=== PATIENT | male | born 1945 | race Hispanic/Latino ===

== ENCOUNTER 2018-05-25 07:21 | Day surgery (SDC) | payer OTHER ==
[2018-05-22 12:00] VITALS: BP 144/85
[2018-05-22 13:16] LABS: BASOPHILS % (AUTO) 0.5 % (0.0-5.0); HEMATOCRIT 42.6 % (42-54); LYMPHOCYTES % (AUTO) 18.1 % (21.0-51.0); MEAN CORPUSCULAR HEMOGLOBIN 31.9 pg (27.0-33.0); MEAN CORPUSCULAR HGB CONC 33.2 g/dL (32.0-36.0); MEAN CORPUSCULAR VOLUME 95.9 fL (79-99); MONOCYTES % (AUTO) 12.2 % (3.0-13.0); NEUTROPHILS % (AUTO) 68.2 % (40.0-77.0); NUCLEATED RED BLOOD CELLS 0.1 % (0.0-0.19); PLATELET COUNT (AUTO) 133 K/uL (130-400); RED BLOOD CELL COUNT(AUTO) 4.45 MIL/uL (4.50-6.20); RED CELL DISTRIBUTION WIDTH 13.9 % (11.0-15.5); WHITE BLOOD COUNT (AUTO) 6.8 K/uL (4.8-10.8)
[2018-05-22 13:17] LABS: APPEARANCE,URINE Clear (CLEAR); BILIRUBIN,URINE Negative (NEGATIVE); COLOR,URINE Yellow (YELLOW); GLUCOSE, URINE (UA) Negative (NEGATIVE); KETONES,URINE Negative (NEGATIVE); LEUKOCYTE ESTERASE ,URINE Negative (NEGATIVE); NITRATE,URINE Negative (NEGATIVE); OCCULT BLOOD,URINE Negative (NEGATIVE); PROTEIN,URINE Negative (NEGATIVE); UROBILINOGEN,URINE 0.2 mg/dL (0.2-1.0)
[2018-05-22 13:32] LABS: CREATININE 0.9 mg/dL (0.5-1.5)
[2018-05-25] VITALS (16 sets, daily range): BP systolic 132–149; BP diastolic 77–95
[~2018-05-25] VITALS: Ht 170.2 cm; Wt 72.8 kg
[2018-05-25] MEDS ORDERED: BUPIVACAINE/PF 0.25% 30ML VIAL IJ ONE (07:55)
[2018-05-25] MEDS ORDERED: MULT-1289 PO (08:00)
[2018-05-25] MEDS ORDERED: LACTATED RINGERS 1000ML 1,000 ML IV SCH (08:00)
[2018-05-25] MEDS ORDERED: TAMS0.4C32 PO (08:00)
[2018-05-25] MEDS ORDERED: DEXAMETHASONE SOD PHOSPHATE 10MG/ML 1ML VIAL ONE (08:27)
[2018-05-25] MEDS ORDERED: MIDAZOLAM HCL 1 MG/ML 2ML VIAL ONE (08:27)
[2018-05-25] MEDS ORDERED: LIDOCAINE PF 2% 5ML ABBOJECT ONE (08:27)
[2018-05-25] MEDS ORDERED: FENTANYL CITRATE PF 50 MCG/1 ML 2ML VIAL ONE (08:28)
[2018-05-25] MEDS ORDERED: PROPOFOL 10 MG/ML 20ML VIAL IV ONE (08:28)
[2018-05-25] MEDS ORDERED: ONDANSETRON HCL 4 MG/2 ML VIAL ONE (08:28)
[2018-05-25] MEDS ORDERED: ROCURONIUM 10MG/1ML SYR 10 MG/ML ML ONE (08:45)
[2018-05-25] MEDS ORDERED: GLYCOPYRROLATE 1 MG/5 ML SYRINGE ONE (09:29)
[2018-05-25] MEDS ORDERED: NEOSTIGMINE 5MG/5ML SYR IV ONE (09:29)
[2018-05-25] MEDS ORDERED: ONDANSETRON HCL MDV 20ML 2 MG/ML VIAL ONE (10:55)
== END 2018-05-25 11:35 | disposition home or self-care (01) ==
LOC: DAH 07:21
PROVIDERS: ATTEND Surgery
DX: K40.90 Unilateral inguinal hernia, without obstruction or gangrene, not specified as recurrent (principal); N40.1 Benign prostatic hyperplasia with lower urinary tract symptoms; R35.1 Nocturia; Z83.3 Family history of diabetes mellitus; Z87.891 Personal history of nicotine dependence; E78.2 Mixed hyperlipidemia; M19.90 Unspecified osteoarthritis, unspecified site; E66.3 Overweight; Z86.010 Personal history of colon polyps; Z98.890 Other specified postprocedural states; Z79.899 Other long term (current) drug therapy
CPT/HCPCS: 36415; 49505; 80048; 81003; 85025; A4450; A4452; A4930; C1729; C1781; J1100; J2001; J2250; J2405; J2704; J2710; J3010; J3490 ×2; J7120

== ENCOUNTER 2019-02-25 09:36 | Emergency (ER) | payer OTHER, MEDICARE ==
[~2019-02-25 09:36] MED LIST: MULT-1289 PO; TAMS0.4C32 PO
[2019-02-25] MEDS ORDERED: ACETAMINOPHEN EXTRA STRENGTH 500 MG TABLET ONE (09:52)
[2019-02-25 10:55] LABS: BASOPHILS % (AUTO) 0.5 % (0.0-5.0); EOSINOPHILS % (AUTO) 0.6 % (0.0-8.0); HEMATOCRIT 42.3 % (42-54); LYMPHOCYTES % (AUTO) 12.4 % (21.0-51.0); MEAN CORPUSCULAR HEMOGLOBIN 33.2 pg (27.0-33.0); MEAN CORPUSCULAR VOLUME 97.6 fL (79-99); MONOCYTES % (AUTO) 13.3 % (3.0-13.0); NEUTROPHILS % (AUTO) 73.2 % (40.0-77.0); PLATELET COUNT (AUTO) 142 K/uL (130-400); RED BLOOD CELL COUNT(AUTO) 4.34 MIL/uL (4.50-6.20); RED CELL DISTRIBUTION WIDTH 14.3 % (11.0-15.5); WHITE BLOOD COUNT (AUTO) 6.2 K/uL (4.8-10.8)
[2019-02-25 11:07] LABS: INR 0.92 (0.85-1.15); PARTIAL THROMBOPLASTIN TIME 26.8 SEC (26.3-35.5); PROTHROMBIN TIME 9.7 SEC (9.6-11.6)
[2019-02-25 11:12] LABS: POTASSIUM 3.9 mmol/L (3.5-5.1)
[2019-02-25 11:20] LABS: ALBUMIN 3.6 g/dL (3.5-5.0); BILIRUBIN,TOTAL 0.5 mg/dL (0.2-1.0); CREATININE 0.8 mg/dL (0.5-1.5); TOTAL PROTEIN, SERUM 7.4 g/dL (6.0-8.3)
== END 2019-02-25 12:12 | disposition home or self-care (01) ==
LOC: EDH 09:36
DX: R07.89 Other chest pain (principal)
CPT/HCPCS: 36415; 71046; 80053; 82550; 84484; 85025; 85610; 85730; 93005

== ENCOUNTER 2023-11-29 09:24 | Emergency (ER) | payer OTHER, MEDICARE ==
[2023-11-29] MEDS: KETOROLAC 15MG/ML VIAL (15MG/ML) IM ONE (11:01)
[2023-11-29] MEDS ORDERED: MELO-108 PO (12:08)
[2023-11-29 12:35] VITALS: BP 151/77; PULSE 85; RESP 14; O2SAT 97
== END 2023-11-29 12:37 | disposition home or self-care (01) ==
LOC: EDH 09:24
DX: M54.50 Low back pain, unspecified (principal); E11.9 Type 2 diabetes mellitus without complications; Z79.899 Other long term (current) drug therapy; W11.XXXA Fall on and from ladder, initial encounter; Y93.89 Activity, other specified; Y92.89 Other specified places as the place of occurrence of the external cause; Y99.8 Other external cause status
CPT/HCPCS: 99285; 74176; 96372; J1885

== ENCOUNTER 2024-04-27 17:58 | Emergency (ER) | payer OTHER, MEDICARE ==
[~2024-04-27] VITALS: Ht 172.7 cm; Wt 72.6 kg
[~2024-04-27 17:58] MED LIST changes: +MELO-108 PO
--- NOTE | 2024-04-27 18:08 | ERN ---
ED Note History of Present Illness Stated Complaint: DIZZINESS Chief Complaint: Dizzy/Light Headed Time Seen by MD: 18:00 Dictation: PATIENT IS A 78-YEAR-OLD MALE COMING IN TODAY WITH DIZZINESS AND LEFT ANTERIOR CHEST PAIN TENDERNESS ONSET YESTERDAY. NO JAW PAIN NO BACK PAIN NO ARM PAIN. NO NAUSEA NO VOMITING. PATIENT IS NEUROLOGICALLY INTACT WITH GAIT STEADY AND NIH IS 0. Allergies: Coded Allergies: No Known Allergies (Verified Allergy, Unknown, 05/22/18) Home Meds Active Scripts Meloxicam (Meloxicam) 15 Mg Tablet, 7.5 MG PO DAILY PRN for PAIN for 10 Days, #10 TAB Prov:SANJUANA TORRES 11/29/23 Reported Medications Tamsulosin HCl (Tamsulosin HCl) 0.4 Mg Cap.er.24h, 0.4 MG PO AM, CAPSULE. 05/25/18 Multivit-Min/FA/Lycopen/Lutein (Centrum Silver Men Tablet) 1 Each Tablet, 1 EACH PO AM, TAB 05/25/18 Past Medical History Past Medical History: Prostatitis Surgical History: None PSYCH History: no pertinent psych hx RN Note Reviewed/Agreed w/PFSH: Yes Review of System Dictation CONSTITUTIONAL: NEGATIVE EXCEPT FOR HPI HEAD/FACE: NEGATIVE EXCEPT FOR HPI EENT: NEGATIVE EXCEPT FOR HPI LEFT ANTERIOR CHEST PAIN RESPIRATORY: NEGATIVE EXCEPT FOR HPI GASTROINTESTINAL/ABDOMINAL: NEGATIVE EXCEPT FOR HPI GENITOURINARY: NEGATIVE EXCEPT FOR HPI MUSCULOSKELETAL: NEGATIVE EXCEPT FOR HPI INTEGUMENTARY: NEGATIVE EXCEPT FOR HPI NEUROLOGICAL/PSYCH: NEGATIVE EXCEPT FOR HPI DIZZINESS HEMATOLOGIC/LYMPHATIC: NEGATIVE EXCEPT FOR HPI ALL SYSTEMS NEGATIVE, EXCEPT NOTED ABOVE. 13 POINT REVIEW OF SYSTEMS ASSESSED AND ALL NEGATIVE EXCEPT FOR ABOVE. Initial Vital Sign VS Vital Signs Date Time Temp Pulse Resp B/P (MAP) Pulse Ox O2 Delivery O2 Flow Rate FiO2 04/27/24 17:58 98.8 74 20 140/78 98 Room Air 0 Physical Exam Dictation VITAL SIGNS REVIEWED GENERAL APPEARANCE: ALERT, ORIENTED X 3, NO ACUTE DISTRESS, WELL DEVELOPED, NOURISHED. HEAD AND FACE: NON-TRAUMATIC. EYES: PERRL, PINK CONJUNCTIVAS, EYELID NO TRAUMA, ANTERIOR CHAMBER WITH ARCUS SENILIS. EARS: PINNAS INTACT AND NO SIGNS OF TRAUMA OR ERYTHEMA EAR CANALS CLEAR AND NO DISCHARGE TM NO ERYTHEMA NOSE: NO DISCHARGE, NO BLEEDING. OROPHARYNX: MOUTH NORMAL, TONGUE PINK, PHARYNX CLEAR,NO ERYTHEMA, TONSILS NO EXUDATES, NO ABSCESSES NOTED, MUCOUS MEMBRANE MOIST NECK: SUPPLE, NON-TENDER, NO THYROMEGALY, NO MASSES, NO JVD, NO BRUITS BREAST:DEFERRED CHEST:NO TENDERNESS, NO CREPITUS, NO PARADOXICAL MOVEMENT, NO RETRACTIONS LUNGS:CLEAR, WELL-VENTILATED, SYMMETRIC, NO RALES, NO WHEEZING, NO RHONCHI, NO STRIDOR, GOOD BREATH SOUNDS BILATERALLY HEART: REGULAR RATE, REGULAR RHYTHM, NO MURMUR, NO GALLOPS VASCULAR: NO PERIPHERAL EDEMA, ABDOMEN: SOFT, POSITIVE BOWEL SOUNDS, NONDISTENDED, NO GUARDING, NONTENDER, NO REBOUND, NO MASSES NO HEPATOMEGALY, NO SPLENOMEGALY, NO FLORIAN'S SIGN, NO HERNIAS. RECTAL: DEFERRED GENITAL: DEFERRED NEUROLOGICAL: NORMAL SPEECH, MOTOR FUNCTION INTACT, SENSORY FUNCTION INTACT NIH IS 0 MUSCULOSKELETAL: NECK NONTENDER, FULL RANGE OF MOTION, BACK NONTENDER, FULL RANGE OF MOTION, EXTREMITIES: NONTENDER, FULL RANGE OF MOTION SKIN: COLOR PINK, DRY, NO TURGOR, NO RASH, NO LACERATIONS, NO ABRASIONS, NO CONTUSIONS. LYMPHATIC: DEFERRED Results (Laboratory/Radiology) Laboratory/Radiology Laboratory Tests Test 04/27/24 18:11 04/27/24 18:17 04/27/24 20:21 Urine Color YELLOW (YELLOW) Urine Appearance CLEAR (CLEAR) Urine pH 6.0 (5.0-8.0) Urine Specific [place] 1.023 (1.001-1.031) Urine Protein NEGATIVE mg/dL (NEGATIVE) Urine Glucose (UA) NEGATIVE mg/dL (NEGATIVE) Urine Ketones NEGATIVE mg/dL (NEGATIVE) Urine Occult Blood NEGATIVE (NEGATIVE) Urine Nitrate NEGATIVE (NEGATIVE) Urine Bilirubin NEGATIVE mg/dL (NEGATIVE) Urine Urobilinogen 0.2 mg/dL (0.2-1.0) Urine Leukocyte Esterase NEGATIVE Anabelle/uL White Blood Count 6.5 K/uL (4.8-10.8) Red Blood Count 4.10 MIL/uL (4.50-6.20) L Hemoglobin 13.0 g/dL (14.0-18.0) L Hematocrit 38.7 % (42-54) L Mean Corpuscular Volume 94.4 fL (79-99) Mean Corpuscular Hemoglobin 31.7 pg (27.0-33.0) Mean Corpuscular Hemoglobin Concent 33.6 g/dL (32.0-36.0) Red Cell Distribution Width 13.7 % (11.0-15.5) Platelet Count 171 K/uL (130-400) Mean Platelet Volume 10.2 fL (7.5-10.5) Immature Granulocyte % (Auto) 0.3 % (0-1) Neutrophils (%) (Auto) 52.5 % (40.0-77.0) Lymphocytes (%) (Auto) 32.8 % (21.0-51.0) Monocytes (%) (Auto) 12.4 % (3.0-13.0) Eosinophils (%) (Auto) 1.5 % (0.0-8.0) Basophils (%) (Auto) 0.5 % (0.0-5.0) Neutrophils # (Auto) 3.4 K/uL (1.8-7.7) Lymphocytes # (Auto) 2.1 K/uL (1.0-4.8) Monocytes # (Auto) 0.8 K/uL (0.1-1.0) Eosinophils # (Auto) 0.10 K/uL (0.00-0.70) Basophils # (Auto) 0.03 K/uL (0.00-0.20) Absolute Immature Granulocyte (auto 0.02 K/uL (0-1) Nucleated Red Blood Cells 0.0 % (0.0-0.19) Sodium Level 140 mmol/L (136-145) Potassium Level 3.7 mmol/L (3.5-5.1) Chloride Level 103 mmol/L (101-111) Carbon Dioxide Level 31 mmol/L (21-32) Blood Urea Nitrogen 20 mg/dL (7-18) H Creatinine 0.8 mg/dL (0.5-1.3) Glomerular Filtration Rate Calc 90 mL/min (>90) Random Glucose 91 mg/dL (70-105) Total Calcium 8.7 mg/dL (8.5-10.1) Total Creatine Kinase 179 U/L (21-232) # B-Type Natriuretic Peptide 37 pg/mL (0-100) Troponin I High Sensitivity 7 ng/L (4-75) CHEST 1VW REASON: CHEST PAIN COMPARISON: 02/25/2019 FINDINGS: Single view of the chest was obtained. Lungs are clear. Heart size is normal. There is no pulmonary vascular congestion. Mediastinum and bony thorax appear unremarkable. IMPRESSION: 1. Normal single view chest x-ray. Labs Reviewed?: Yes EKG Comment: EKG NORMAL SINUS RHYTHM/HEART RATE 71/AXIS NORMAL/NO ED Course ED Course Orders Procedure Category Date Status Time Vital Signs Per CPOE 04/27/24 Transmitted Routine 18:01 B-Type Natriuretic LAB 04/27/24 Complete Peptide 18:01 Chest 1vw RAD 04/27/24 Resulted 18:01 12 Lead Ekg Tracing- EKG 04/27/24 Logged Technical 18:01 Oxygen By Nc/Pulse Ox CPOE 04/27/24 Transmitted 18:01 Maintain Iv CPOE 04/27/24 Transmitted 18:01 Iv Insertion CPOE 04/27/24 Transmitted 18:01 Cardiac Monitoring CPOE 04/27/24 Transmitted 18:01 Pulse Oximetry With CPOE 04/27/24 Transmitted Vs And Prn 18:01 Cbc With Differential LAB 04/27/24 Complete 18:01 Activity: Br W/Brp CPOE 04/27/24 Transmitted With Assist 18:01 Creatine Kinase, Total LAB 04/27/24 Complete 18:01 Urinalysis Profile LAB 04/27/24 Complete 18:01 Troponin Poc Order LAB 04/27/24 Complete Only 18:01 Bedside Troponin-I LAB.ER 04/27/24 In Process (Poc) 18:01 Basic Metabolic Panel LAB 04/27/24 Complete 18:01 Aspirin 325mg Tab PHA 04/27/24 Complete (Aspirin 325mg Tab) 18:30 Troponin I High LAB 04/27/24 Complete Sensitivity 20:14 Current Medications Medications (Trade) Dose Ordered Sig/Paramjit Route PRN Reason Start Time Stop Time Status Last Admin Dose Admin Aspirin (Aspirin 325mg Tab) 325 mg ONCE ONCE PO 04/27/24 18:30 04/27/24 18:31 DC Vital Signs Date Time Temp Pulse Resp B/P (MAP) Pulse Ox O2 Delivery O2 Flow Rate FiO2 04/27/24 17:58 98.8 74 20 140/78 98 Room Air 0 06/04/2044, patient is hemodynamically stable no chest pain at this time discharged home with atypical chest pain and told to see his primary care doctor in 1-2 days. HEART Score Response (Comments) Value History: Low suspicion (0) 0 Age: > 65yrs (+2) 2 Risk Factors: 1-2 risk factors (+1) 1 Initial Troponin: Normal limit (0) 0 Total 3 Medical Decision Making MDM MDM: Differential diagnosis: ACS/AMI/pneumonia/bronchitis/electrolyte imbalance/dehydration Rationale: Tests considered and ordered secondary to shared decision making include: EKG/labs lab radiology Previous outside records reviewed: Old ER visits. Reviewed Risk of complication and/or morbidity or mortality of patient management: None Medications-Per medication reconciliation see nurse's notes Need for hospitalization: Patient does not meet criteria for hospitalization. No Need for emergency major/minor surgery: No There are no social concerns with this patient. Prescription drug management none Prescriptions will include symptomatic care Patient's prior external medical records from other ER visits were reviewed by me as indicated. Prior testing and results from previous visits were reviewed. Prior tests were taken into account with medical decision making and resource utilization, independent historian/historians were used to obtain complete medical history. I independently interpreted the test that were performed, results were reviewed by me and considered findings on radiology if ordered. Medical management and examination interpretation discussions were had by me with other qualified healthcare professionals as indicated for the patient's care. DX & DISP Disposition: Discharge Departure Impression: Primary Impression: Atypical chest pain Condition: Stable Additional Instructions: Follow-up with primary care provider in 1 to 2 days. Take medications as directed here in the emergency room. Okay to continue home medications unless otherwise discussed during your visit in the emergency room today. Return to your nearest emergency room if symptoms worsen or if there is no improvement. Call 911 if you need immediate assistance. Take Tylenol or Motrin [id number] as needed and if no contraindications are present. Increase oral hydration. A wound culture or urine culture was ordered here in the emergency room department please follow-up with primary care provider and advise them to get repeat ports from our facility. If you had any Kyle wrap/splints that were applied here, please do not remove them until you see your primary care or specialty. Continue all medications and treatments at home. See your primary care doctor for follow up. Referrals: DAVON DRISCOLL MD (PCP) Time of Disposition: 21:49 I have reviewed the case, and I agree with, Diagnosis and Plan FELIX HANNAH NP Apr 27, 2024 18:08
[2024-04-27 18:30] LABS: APPEARANCE,URINE CLEAR (CLEAR); BILIRUBIN,URINE NEGATIVE (NEGATIVE); COLOR,URINE YELLOW (YELLOW); GLUCOSE, URINE (UA) NEGATIVE (NEGATIVE); KETONES,URINE NEGATIVE (NEGATIVE); LEUKOCYTE ESTERASE ,URINE NEGATIVE Leu/uL (NEGATIVE); NITRATE,URINE NEGATIVE (NEGATIVE); OCCULT BLOOD,URINE NEGATIVE (NEGATIVE); PROTEIN,URINE NEGATIVE (NEGATIVE); UROBILINOGEN,URINE 0.2 mg/dL (0.2-1.0)
[2024-04-27] MEDS: ASPIRIN 325MG TAB PO ONE (18:30)
[2024-04-27 18:34] LABS: BASOPHILS # (AUTO) 0.03 K/uL (0.00-0.20); BASOPHILS % (AUTO) 0.5 % (0.0-5.0); EOSINOPHILS % (AUTO) 1.5 % (0.0-8.0); HEMATOCRIT 38.7 % (42-54); IMMATURE GRANULOCYTE ABSOLUTE 0.02 K/uL (0-1); LYMPHOCYTES # (AUTO) 2.1 K/uL (1.0-4.8); LYMPHOCYTES % (AUTO) 32.8 % (21.0-51.0); MEAN CORPUSCULAR HEMOGLOBIN 31.7 pg (27.0-33.0); MEAN CORPUSCULAR HGB CONC 33.6 g/dL (32.0-36.0); MEAN CORPUSCULAR VOLUME 94.4 fL (79-99); MONOCYTES # (AUTO) 0.8 K/uL (0.1-1.0); MONOCYTES % (AUTO) 12.4 % (3.0-13.0); NEUTROPHILS # (AUTO) 3.4 K/uL (1.8-7.7); NEUTROPHILS % (AUTO) 52.5 % (40.0-77.0); PLATELET COUNT (AUTO) 171 K/uL (130-400); RED CELL DISTRIBUTION WIDTH 13.7 % (11.0-15.5); WHITE BLOOD COUNT (AUTO) 6.5 K/uL (4.8-10.8)
[2024-04-27 18:45] LABS: CREATININE 0.8 mg/dL (0.5-1.3); POTASSIUM 3.7 mmol/L (3.5-5.1)
[2024-04-27 18:49] LABS: ADD UA MICROSCOPIC NO
--- NOTE | 2024-04-27 18:52 | HMCIMG ---
CHEST 1VW REASON: CHEST PAIN COMPARISON: 02/25/2019 FINDINGS: Single view of the chest was obtained. Lungs are clear. Heart size is normal. There is no pulmonary vascular congestion. Mediastinum and bony thorax appear unremarkable. IMPRESSION: 1. Normal single view chest x-ray.
[2024-04-27 18:59] LABS: B-TYPE NATRIURETIC PEPTIDE 37 pg/mL (0-100)
[2024-04-27 22:02] VITALS: BP 137/78; PULSE 70; RESP 16; TEMP 98.3; O2SAT 98
--- NOTE | 2024-04-27 22:09 | NUR ---
MEDICATION REVIEWED WITH PT, VERIFIED NAME, AND ALLERGIES
--- NOTE | 2024-04-28 06:34 | EKG ---
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
== END 2024-04-27 22:11 | disposition home or self-care (01) ==
LOC: EDH 17:58
DX: R07.89 Other chest pain (principal); Z79.899 Other long term (current) drug therapy
CPT/HCPCS: 36415; 71045; 80048; 81003; 82550; 83880; 84484; 85025; 93005; 99285

== ENCOUNTER 2025-04-20 08:12 | Observation (INO) | payer MEDICARE, OTHER ==
[~2025-04-20] VITALS: Ht 167.6 cm; Wt 65.7 kg
[2025-04-20] MEDS: 0.9%NACL 1000ML 1,000 ML IV ONE (08:27)
--- NOTE | 2025-04-20 08:37 | EKG ---
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
[2025-04-20 08:49] LABS: IMMATURE GRANULOCYTE ABSOLUTE 0.01 K/uL (0-1); NUCLEATED RED BLOOD CELLS 0.0 % (0.0-0.19); PLATELET COUNT (AUTO) 165 K/uL (130-400); RED BLOOD CELL COUNT(AUTO) 4.30 MIL/uL (4.50-6.20); RED CELL DISTRIBUTION WIDTH 13.8 % (11.0-15.5); WHITE BLOOD COUNT (AUTO) 6.6 K/uL (4.8-10.8)
[2025-04-20 09:07] LABS: ASPARTATE AMINOTRANSFERASE 36.0 U/L (10-37); CREATINE KINASE, TOTAL 96.0 U/L (21-232); CREATININE 0.8 mg/dL (0.5-1.3); GLOMERULAR FILTR. RATE CALC 89.0 mL/min (>90); GLUCOSE,RANDOM 86.0 mg/dL (70-105); SODIUM SERUM 136.0 mmol/L (136-145); TOTAL PROTEIN, SERUM 7.4 g/dL (6.0-8.3); UREA NITROGEN, BLOOD 19.0 mg/dL (7-18)
--- NOTE | 2025-04-20 09:15 | HMCIMG ---
EXAM: CR Chest, 1 View. CLINICAL HISTORY: weakness COMPARISON: None provided. FINDINGS: LUNGS: There is no mass, infiltrate, or acute pulmonary abnormality. PLEURAL SPACES: No evidence of pleural effusion or pneumothorax.Mild right apical pleural thickening noted MEDIASTINUM: Cardiac size and mediastinal contours within normal limits. BONES: No acute osseous abnormality. IMPRESSION: No acute cardiopulmonary pathology is evident. /[place]
--- NOTE | 2025-04-20 09:24 | ERN ---
General Chief Complaint: Other Problems Stated Complaint: WELLNESS CHECK Time Seen by MD: 08:15 Source: patient History of Present Illness Initial Comments Patient is a an 79-year-old male coming in complaining of generalized body weakness. Patient also states he just does not feel like himself. Allergies: Coded Allergies: No Known Allergies (Verified Allergy, Unknown, 05/22/18) Home Meds Active Scripts Meloxicam (Meloxicam) 15 Mg Tablet, 7.5 MG PO DAILY PRN for PAIN for 10 Days, #10 TAB Prov:BRIANSANJUANA Cramer DO 11/29/23 Reported Medications Tamsulosin HCl (Tamsulosin HCl) 0.4 Mg Cap.er.24h, 0.4 MG PO AM, CAPSULE. 05/25/18 Multivit-Min/FA/Lycopen/Lutein (Centrum Silver Men Tablet) 1 Each Tablet, 1 EACH PO AM, TAB 05/25/18 Past Medical History Past Medical History: Prostatitis, Other Past Surgical History: None ROS Dictation CONSTITUTIONAL: No chills, no fever, no weakness, no diaphoresis, malaise. HEAD/FACE: No signs of trauma. EENT: No eye pain, no blurred vision, no tearing, no double vision, no ear pain, no ear discharge, no nose pain, no nasal congestion, no throat pain, no throat swelling, no mouth pain. RESPIRATORY: No cough, no orthopnea, no SOB, no stridor, no wheezing. CARDIOVASCULAR: No chest pain, no edema, no palpitations, no syncope. GASTROINTESTINAL/ABDOMINAL: No abdominal pain, no constipation, no diarrhea, no nausea, no vomiting. GENITOURINARY: No abnormal discharge, no dysuria, no frequent urination, no hematuria. No complaints of pain in the genitals. MUSCULOSKELETAL: No back pain, no gout, no joint pain, no joint swelling, no muscle pain, no muscle stiffness, no neck pain. INTEGUMENTARY: No change in color, no change in hair/nails, no dryness, no lesion, no lumps, no rash. NEUROLOGICAL/PSYCH: No anxiety, not depressed, no emotional problem, no headache, no numbness, no pre-existing deficit, no history of seizures, no tremors, no weakness. HEMATOLOGIC/LYMPHATIC: Not anemic, no history of blood clots, no apparent bleeding, no bruising, glands not swollen. All Systems Negative, Except as Noted. Physical Exam Physical Exam Dictation VITAL SIGNS: Reviewed. GENERAL APPEARANCE: Alert, oriented x3, no acute distress, obese. HEAD AND FACE: Non-traumatic. EYES: PERRL, pink conjunctivas, eyelid no trauma, anterior chamber clear. EARS: Pinnas intact and no signs of trauma or erythema. Ear canals clear and no discharge. TMs no erythema. NOSE: No discharge, no bleeding. OROPHARYNX: Mouth normal, teeth no caries, tongue pink. Pharynx clear, no erythema. Tonsils no exudates, no abscesses noted. Mucous membrane moist. NECK: Supple, non-tender, no thyromegaly, no masses, no JVD, no bruits. BREAST: Deferred. CHEST: No tenderness, no crepitus, no paradoxical movement, no retractions. LUNGS: Clear, well-ventilated, symmetric, no rales, no wheezing, no rhonchi, no stridor, good breath sounds bilaterally. HEART: Regular rate, regular rhythm, no murmur, no gallops. VASCULAR: No peripheral edema. ABDOMEN: Soft, positive bowel sounds, nondistended, no guarding, nontender, no rebound, no masses no hepatomegaly, no splenomegaly, no Watts's sign, no hernias. RECTAL: Deferred. GENITAL: Deferred. NEUROLOGICAL: Normal speech, gross motor function intact, gross sensory function intact. MUSCULOSKELETAL: Neck nontender, full range of motion, back nontender, full range of motion. EXTREMITIES: Nontender, full range of motion. SKIN: Color pink, dry, no turgor, no rash, no lacerations, no abrasions, no co ntusions. LYMPHATICS: Deferred. Results Laboratory and Microbiology Lab and Micro Result Laboratory Tests Test 04/20/25 08:42 04/20/25 09:30 White Blood Count 6.6 K/uL (4.8-10.8) Red Blood Count 4.30 MIL/uL (4.50-6.20) L Hemoglobin 13.6 g/dL (14.0-18.0) L Hematocrit 40.3 % (42-54) L Mean Corpuscular Volume 93.7 fL (79-99) Mean Corpuscular Hemoglobin 31.6 pg (27.0-33.0) Mean Corpuscular Hemoglobin Concent 33.7 g/dL (32.0-36.0) Red Cell Distribution Width 13.8 % (11.0-15.5) Platelet Count 165 K/uL (130-400) Mean Platelet Volume 10.0 fL (7.5-10.5) Immature Granulocyte % (Auto) 0.2 % (0-1) Neutrophils (%) (Auto) 70.0 % (40.0-77.0) Lymphocytes (%) (Auto) 20.8 % (21.0-51.0) L Monocytes (%) (Auto) 8.2 % (3.0-13.0) Eosinophils (%) (Auto) 0.5 % (0.0-8.0) Basophils (%) (Auto) 0.3 % (0.0-5.0) Neutrophils # (Auto) 4.6 K/uL (1.8-7.7) Lymphocytes # (Auto) 1.4 K/uL (1.0-4.8) Monocytes # (Auto) 0.5 K/uL (0.1-1.0) Eosinophils # (Auto) 0.03 K/uL (0.00-0.70) Basophils # (Auto) 0.02 K/uL (0.00-0.20) Absolute Immature Granulocyte (auto 0.01 K/uL (0-1) Nucleated Red Blood Cells 0.0 % (0.0-0.19) Sodium Level 136 mmol/L (136-145) Potassium Level 4.0 mmol/L (3.5-5.1) Chloride Level 103 mmol/L (101-111) Carbon Dioxide Level 28 mmol/L (21-32) Blood Urea Nitrogen 19 mg/dL (7-18) H Creatinine 0.8 mg/dL (0.5-1.3) Glomerular Filtration Rate Calc 89 mL/min (>90) Random Glucose 86 mg/dL (70-105) Total Calcium 8.3 mg/dL (8.5-10.1) L Total Bilirubin 0.6 mg/dL (0.2-1.0) Aspartate Amino Transf (AST/SGOT) 36 U/L (10-37) Alanine Aminotransferase (ALT/SGPT) 39 U/L (12-78) Alkaline Phosphatase 69 U/L (50-136) Total Creatine Kinase 96 U/L (21-232) # Total Protein 7.4 g/dL (6.0-8.3) Albumin 3.4 g/dL (3.5-5.0) L Lipase 38 U/L (16-77) Urine Color LIGHT-YELLOW (YELLOW) Urine Appearance CLEAR (CLEAR) Urine pH 5.5 (5.0-8.0) Urine Specific [place] 1.012 (1.001-1.031) Urine Protein NEGATIVE mg/dL (NEGATIVE) Urine Glucose (UA) NEGATIVE mg/dL (NEGATIVE) Urine Ketones 5 mg/dL (NEGATIVE) H Urine Occult Blood NEGATIVE (NEGATIVE) Urine Nitrate NEGATIVE (NEGATIVE) Urine Bilirubin NEGATIVE mg/dL (NEGATIVE) Urine Urobilinogen 0.2 mg/dL (0.2-1.0) Urine Leukocyte Esterase NEGATIVE Anabelle/uL Labs Reviewed?: Yes EKG/XRAY/US/CT/MRI EKG Comment 04/20/2025 time 8:26 a.m. Ventricular rate 71 Sinus rhythm [place] [address] wave elevation or depression [place] [address] IMAGING REPORT Signed PATIENT: NARAYAN PEREIRA MR#: [id number] : 1945 SEX: M AGE: 79 LOCATION: [facility] ORDER 7 STATUS: REG ER REPORT#: [id number] SERVICE 6 REASON: weakness ORDERING PHYSICIAN: ODILIA GRAYSON MD PROCEDURE: CXR1VW - CHEST 1VW EXAM: CR Chest, 1 View. CLINICAL HISTORY: weakness COMPARISON: None provided. FINDINGS: LUNGS: There is no mass, infiltrate, or acute pulmonary abnormality. PLEURAL SPACES: No evidence of pleural effusion or pneumothorax.Mild right apical pleural thickening noted MEDIASTINUM: Cardiac size and mediastinal contours within normal limits. BONES: No acute osseous abnormality. IMPRESSION: No acute cardiopulmonary pathology is evident. /[place] DICTATED BY: MAYA HUTTON MD DATE: 04/20/25 1014 ELECTRONICALLY SIGNED BY: MAYA HUTTON MD DATE: 04/20/25 1014 MDM MDM: Differential diagnosis: Failure to Thrive, generalized body weakness, Rationale: Tests considered and ordered secondary to shared decision making include: Previous outside records reviewed: Old ER visits. Risk of complication and/or morbidity or mortality of patient management: None Medications-Per medication reconciliation Need for hospitalization: Patient does meet criteria for hospitalization. Need for emergency major/minor surgery: No There are no social concerns with this patient. Prescription drug management Prescriptions will include symptomatic care Patient's prior external medical records from other ER visits were reviewed by me as indicated. Prior testing and results from previous visits were reviewed. Prior tests were taken into account with medical decision making and resource utilization, independent historian/historians were used to obtain complete medical history. I independently interpreted the test that were performed, results were reviewed by me and considered findings on radiology if ordered. Medical management and examination interpretation discussions were had by me with other qualified healthcare professionals as indicated for the patient's care. Patient will be care of the [facility] ED Course Orders Procedure Category Date Status Time Cbc With Differential LAB 04/20/25 Complete 08:17 Comprehensive LAB 04/20/25 Complete Metabolic Panel 08:17 Urinalysis Profile LAB 04/20/25 Complete 08:17 12 Lead Ekg Tracing- EKG 04/20/25 Complete Technical 08:17 0.9%Nacl 1000ml (Ns PHA 04/20/25 Complete 1000ml) 08:30 Creatine Kinase, Total LAB 04/20/25 Complete 08:17 Chest 1vw RAD 04/20/25 Resulted 08:17 Lipase LAB 04/20/25 Complete 08:17 Current Medications Medications (Trade) Dose Ordered Sig/Paramjit Route PRN Reason Start Time Stop Time Status Last Admin Dose Admin Sodium Chloride 1,000 ml @ 0 mls/hr ONCE ONCE IV 04/20/25 08:30 04/20/25 08:31 DC 04/20/25 08:27 Vital Signs Date Time Temp Pulse Resp B/P (MAP) Pulse Ox O2 Delivery O2 Flow Rate FiO2 04/20/25 08:50 67 13 132/78 98 Room Air* 0 21 04/20/25 08:15 97.7 70 20 151/71 98 Room Air DX & DISP Disposition: Inpatient Decision to Admit Time: 11:14 Departure Impression: Primary Impression: Failure to thrive Condition: Stable Referrals: DAVON DRISCOLL MD (PCP) ODILIA GRAYSON MD Apr 20, 2025 09:24
[2025-04-20 10:08] LABS: APPEARANCE,URINE CLEAR (CLEAR); GLUCOSE, URINE (UA) NEGATIVE (NEGATIVE); LEUKOCYTE ESTERASE ,URINE NEGATIVE Leu/uL (NEGATIVE); NITRATE,URINE NEGATIVE (NEGATIVE); OCCULT BLOOD,URINE NEGATIVE (NEGATIVE)
[2025-04-20 10:09] LABS: ADD UA MICROSCOPIC NO
[2025-04-20] MEDS ORDERED: ARTIFICAL TEARS SOL 15 ML OP PRN (11:30)
[2025-04-20] MEDS ORDERED: LACTULOSE 20 GM/30 ML UDCUP PO PRN (11:30)
[2025-04-20] MEDS ORDERED: MAG/ALUM/SIMETH 30 ML UDCUP PO PRN (11:30)
[2025-04-20] MEDS ORDERED: LOPERAMIDE HCL 2 MG CAP PO PRN (11:30)
[2025-04-20] MEDS ORDERED: guaiFENesin-DM 200/20MG 10ML PO PRN (11:30)
[2025-04-20] MEDS ORDERED: BENZOCAINE/MENTH/CETYLPYRD CL 1 EACH LOZENGE MM PRN (11:30)
[2025-04-20] MEDS ORDERED: LIDOCAINE HCL 2% VISCOUS 30 ML, MAG/ALUM/SIMETH 30ML 30 ML, DICYCLOMINE HCL 20 MG PO PRN (11:30)
[2025-04-20] MEDS ORDERED: NITROGLYCERIN 0.4 MG SL TAB SL PRN (11:30)
--- NOTE | 2025-04-20 12:43 | HP ---
[facility] HISTORY & PHYSICAL Date Patient Seen: Apr 20, 2025 Time of Visit: 12:35 Supervising Physician: Dr Saleem Perez Primary Care Physician: [ ] Outpatient Specialists: [ ] Inpatient Consults: [ ] PROBLEM LIST: Generalized weakness Fatigue Dehydration BPH HPI: Patient is a 79-year-old male with limited past medical history presenting to the emergency department reporting generalized weakness. Patient states s tarted several days ago and has progressively worsened. Viral panel is pending, patient's labs are grossly normal, chest x-ray is clear, EKG revealed no significant changes, he denied any chest pain or shortness of breath, no dizziness headache blurred or double vision. No abdominal complaints. Patient was treated with fluids, he was given lunch patient be admitted for observation. PAST MEDICAL HX: see above PAST SURGICAL HX: noncontributory SOCIAL HISTORY: No tobacco, ETOH, or illicit drug use Coded Allergies: No Known Allergies (Verified Allergy, Unknown, 05/22/18) REVIEW OF SYSTEMS: 12 point ROS reviewed with patient. Pertinent positives mentioned above. Otherwise negative. PHYSICAL EXAM: GENERAL: alert, weak, awake oriented x 3 HEENT: EOMI, Sclera non icteric, moist mucosa NECK: Supple, no JVD, trachea midline LUNGS: Clear breath sounds bilaterally. No wheezes HEART: Regular rate and rhythm. Normal S1 and S2, without murmurs ABD: Abdomen soft, nontender. Bowel sounds present EXT: No clubbing cyanosis or edema NEURO: Alert and oriented to person, follows commands Vital Signs (last 8hr) Date Time Temp Pulse Resp B/P (MAP) Pulse Ox O2 Delivery O2 Flow Rate FiO2 04/20/25 08:50 67 13 132/78 98 Room Air* 0 21 04/20/25 08:15 97.7 70 20 151/71 98 Room Air LABS: Hematology Labs: Test 04/20/25 08:42 Range/Units White Blood Count 6.6 4.8-10.8 K/uL Red Blood Count 4.30 L 4.50-6.20 MIL/uL Hemoglobin 13.6 L 14.0-18.0 g/dL Hematocrit 40.3 L 42-54 % Mean Corpuscular Volume 93.7 79-99 fL Mean Corpuscular Hemoglobin 31.6 27.0-33.0 pg Mean Corpuscular Hemoglobin Concent 33.7 32.0-36.0 g/dL Red Cell Distribution Width 13.8 11.0-15.5 % Platelet Count 165 130-400 K/uL Mean Platelet Volume 10.0 7.5-10.5 fL Immature Granulocyte % (Auto) 0.2 0-1 % Neutrophils (%) (Auto) 70.0 40.0-77.0 % Lymphocytes (%) (Auto) 20.8 L 21.0-51.0 % Monocytes (%) (Auto) 8.2 3.0-13.0 % Eosinophils (%) (Auto) 0.5 0.0-8.0 % Basophils (%) (Auto) 0.3 0.0-5.0 % Neutrophils # (Auto) 4.6 1.8-7.7 K/uL Lymphocytes # (Auto) 1.4 1.0-4.8 K/uL Monocytes # (Auto) 0.5 0.1-1.0 K/uL Eosinophils # (Auto) 0.03 0.00-0.70 K/uL Basophils # (Auto) 0.02 0.00-0.20 K/uL Absolute Immature Granulocyte (auto 0.01 0-1 K/uL Nucleated Red Blood Cells 0.0 0.0-0.19 % Chemistry Labs: Test 04/20/25 08:42 Range/Units Sodium Level 136 136-145 mmol/L Potassium Level 4.0 3.5-5.1 mmol/L Chloride Level 103 101-111 mmol/L Carbon Dioxide Level 28 21-32 mmol/L Blood Urea Nitrogen 19 H 7-18 mg/dL Creatinine 0.8 0.5-1.3 mg/dL Glomerular Filtration Rate Calc 89 >90 mL/min Random Glucose 86 70-105 mg/dL Total Calcium 8.3 L 8.5-10.1 mg/dL Total Bilirubin 0.6 0.2-1.0 mg/dL Aspartate Amino Transf (AST/SGOT) 36 10-37 U/L Alanine Aminotransferase (ALT/SGPT) 39 12-78 U/L Alkaline Phosphatase 69 50-136 U/L Total Creatine Kinase 96 # 21-232 U/L Total Protein 7.4 6.0-8.3 g/dL Albumin 3.4 L 3.5-5.0 g/dL Lipase 38 16-77 U/L DIAGNOSTICS / RADIOLOGY RESULTS: [ ] PLAN Follow pending viral panel Admit for observation Fluids NEURO: Minimize central acting medications as possible. Maintain fall precautions, adequate lighting during the day PULMONARY: Supplemental 02 as needed. Maintain aspiration precautions at all times CARDIOVASCULAR: Follow hemodynamics. Vital signs per facility protocol GI & NUTRITION: Continue with nutritional support. Continue stool softeners and laxatives as needed. KIDNEYS & ELECTROLYTES: Strict monitoring of intake, output and overall fluid balance. Avoid nephrotoxic medications to the extent possible. Medications to be dosed according to renal function. Monitor electrolytes and replace as needed ENDOCRINE: Maintain blood glucose between 100-180 at all times. Hypoglycemia protocol in place INFECTIOUS DISEASE: Trend temperature, WBC and procalcitonin level Follow cultures, deescalate antibiotics as soon as possible. Panculture if new onset fever ONCOLOGY/HEMATOLOGY/COAGULATION: Monitor for s/s of bleeding Monitor hemoglobin, coagulation studies as needed SKIN: Pressure ulcer prevention per facility protocol Specialty mattress ORTHO/REHAB: Continue PT/OT Prophylaxis: Continue GI and DVT prophylaxis Code Status: Full Resuscitation Disposition: ARMANDO CHAU PAC Apr 20, 2025 12:43
--- NOTE | 2025-04-20 13:02 | NUR ---
REPORT GIVEN TO ELMA HERNANDEZ
[2025-04-20 13:53] LABS: COVID19 (SARS ANTIGEN RAPID) PRESUMPTIVE NEGATIVE (NEGATIVE); INFLUENZA TYPE A Negative For Type A (NEGATIVE); INFLUENZA TYPE B Negative For Type B (NEGATIVE)
[2025-04-20 16:00] VITALS: BP 124/79; PULSE 70; RESP 18; TEMP 98.4
[2025-04-20 20:12] VITALS: O2SAT 96
[2025-04-20] MEDS: FAMOTIDINE 20MG TAB PO SCH (20:12)
[2025-04-20 20:27] VITALS: BP 121/71; PULSE 59; RESP 17; TEMP 98
[2025-04-21 00:01] VITALS: BP 118/68; PULSE 60; RESP 16; TEMP 97.8
[2025-04-21 04:19] VITALS: BP 118/69; PULSE 68; RESP 18; TEMP 98.1
[2025-04-21 05:49] LABS: IMMATURE GRANULOCYTE ABSOLUTE 0.02 K/uL (0-1); NUCLEATED RED BLOOD CELLS 0.0 % (0.0-0.19); PLATELET COUNT (AUTO) 164 K/uL (130-400); RED BLOOD CELL COUNT(AUTO) 3.88 MIL/uL (4.50-6.20); RED CELL DISTRIBUTION WIDTH 13.7 % (11.0-15.5); WHITE BLOOD COUNT (AUTO) 7.3 K/uL (4.8-10.8)
[2025-04-21 05:54] LABS: ASPARTATE AMINOTRANSFERASE 25.0 U/L (10-37); CREATININE 0.8 mg/dL (0.5-1.3); GLOMERULAR FILTR. RATE CALC 89.0 mL/min (>90); GLUCOSE,RANDOM 87.0 mg/dL (70-105); SODIUM SERUM 139.0 mmol/L (136-145); TOTAL PROTEIN, SERUM 6.6 g/dL (6.0-8.3); UREA NITROGEN, BLOOD 13.0 mg/dL (7-18)
[2025-04-21 08:00] VITALS: BP 131/85; PULSE 89; RESP 18; TEMP 99.2
--- NOTE | 2025-04-21 09:59 | PN ---
[facility] PROGRESS NOTE Date Patient Seen: Apr 21, 2025 Time of Visit: 09:59 Supervising Physician: [ ] Primary Care Physician: [ ] Outpatient Specialists: [ ] Inpatient Consults: [ ] PROBLEM LIST: Generalized weakness Fatigue Dehydration BPH INTERVAL HISTORY: [ ] REVIEW OF SYSTEMS: 12 point ROS reviewed with patient. Pertinent positives mentioned above. Otherwise negative. PHYSICAL EXAM: GENERAL: alert, weak, awake oriented x 3 HEENT: EOMI, Sclera non icteric, moist mucosa NECK: Supple, no JVD, trachea midline LUNGS: Clear breath sounds bilaterally. No wheezes HEART: Regular rate and rhythm. Normal S1 and S2, without murmurs ABD: Abdomen soft, nontender. Bowel sounds present EXT: No clubbing cyanosis or edema NEURO: Alert and oriented to person, follows commands Vital Signs (last 8hr) Date Time Temp Pulse Resp B/P (MAP) Pulse Ox O2 Delivery O2 Flow Rate FiO2 04/21/25 08:05 Room Air* 0 21 04/21/25 08:00 99.1 89 18 131/85 98 Room Air 04/21/25 04:19 98.1 68 18 118/69 Room Air LABS: Hematology Labs: Test 04/21/25 04:45 Range/Units White Blood Count 7.3 4.8-10.8 K/uL Red Blood Count 3.88 L 4.50-6.20 MIL/uL Hemoglobin 12.5 L 14.0-18.0 g/dL Hematocrit 36.3 L 42-54 % Mean Corpuscular Volume 93.6 79-99 fL Mean Corpuscular Hemoglobin 32.2 27.0-33.0 pg Mean Corpuscular Hemoglobin Concent 34.4 32.0-36.0 g/dL Red Cell Distribution Width 13.7 11.0-15.5 % Platelet Count 164 130-400 K/uL Mean Platelet Volume 10.6 H 7.5-10.5 fL Immature Granulocyte % (Auto) 0.3 0-1 % Neutrophils (%) (Auto) 62.3 40.0-77.0 % Lymphocytes (%) (Auto) 27.8 21.0-51.0 % Monocytes (%) (Auto) 8.4 3.0-13.0 % Eosinophils (%) (Auto) 0.8 0.0-8.0 % Basophils (%) (Auto) 0.4 0.0-5.0 % Neutrophils # (Auto) 4.6 1.8-7.7 K/uL Lymphocytes # (Auto) 2.0 1.0-4.8 K/uL Monocytes # (Auto) 0.6 0.1-1.0 K/uL Eosinophils # (Auto) 0.06 0.00-0.70 K/uL Basophils # (Auto) 0.03 0.00-0.20 K/uL Absolute Immature Granulocyte (auto 0.02 0-1 K/uL Nucleated Red Blood Cells 0.0 0.0-0.19 % Chemistry Labs: Test 04/21/25 04:45 04/20/25 08:42 Range/Units Sodium Level 139 136-145 mmol/L Potassium Level 3.6 3.5-5.1 mmol/L Chloride Level 104 101-111 mmol/L Carbon Dioxide Level 28 21-32 mmol/L Blood Urea Nitrogen 13 7-18 mg/dL Creatinine 0.8 0.5-1.3 mg/dL Glomerular Filtration Rate Calc 89 >90 mL/min Random Glucose 87 70-105 mg/dL Total Calcium 8.1 L 8.5-10.1 mg/dL Total Bilirubin 0.5 0.2-1.0 mg/dL Aspartate Amino Transf (AST/SGOT) 25 10-37 U/L Alanine Aminotransferase (ALT/SGPT) 31 # 12-78 U/L Alkaline Phosphatase 57 50-136 U/L Total Protein 6.6 6.0-8.3 g/dL Albumin 3.0 L 3.5-5.0 g/dL Total Creatine Kinase 96 # 21-232 U/L Lipase 38 16-77 U/L DIAGNOSTICS / RADIOLOGY RESULTS: [ ] PLAN Follow pending viral panel Admit for observation Fluids NEURO: Minimize central acting medications as possible. Maintain fall precautions, adequate lighting during the day PULMONARY: Supplemental 02 as needed. Maintain aspiration precautions at all times CARDIOVASCULAR: Follow hemodynamics. Vital signs per facility protocol GI & NUTRITION: Continue with nutritional support. Continue stool softeners and laxatives as needed. KIDNEYS & ELECTROLYTES: Strict monitoring of intake, output and overall fluid balance. Avoid nephrotoxic medications to the extent possible. Medications to be dosed according to renal function. Monitor electrolytes and replace as needed ENDOCRINE: Maintain blood glucose between 100-180 at all times. Hypoglycemia protocol in place INFECTIOUS DISEASE: Trend temperature, WBC and procalcitonin level Follow cultures, deescalate antibiotics as soon as possible. Panculture if new onset fever ONCOLOGY/HEMATOLOGY/COAGULATION: Monitor for s/s of bleeding Monitor hemoglobin, coagulation studies as needed SKIN: Pressure ulcer prevention per facility protocol Specialty mattress ORTHO/REHAB: Continue PT/OT Prophylaxis: Continue GI and DVT prophylaxis Code Status: Full Resuscitation Disposition: TBMAYA BALLARD PAC Apr 21, 2025 09:59
[2025-04-21] MEDS ORDERED: PoTASSium chl 10% ELIXIR 20MEQ 20 MEQ/15 ML UDCUP PO PRN (10:00)
--- NOTE | 2025-04-21 11:29 | CONS ---
HISTORY OF PRESENT ILLNESS: The patient is a very pleasant 79-year-old male admitted to the hospital with failure to thrive. I was asked to see the patient regarding thickened elongated toenails that he states have not been cut in several years. The patient admitted with generalized weakness, fatigue, dehydration, and benign prostate hypertrophy. The patient has been admitted for observation. REVIEW OF SYSTEMS: CONSTITUTIONAL: No chills, fevers, night sweats. GASTROINTESTINAL: No nausea, vomiting, no diarrhea. HEENT: No problems with his eyes, ears, nose and throat. CARDIOVASCULAR: No current chest pain. RESPIRATORY: No shortness of breath. GENITOURINARY: No dysuria. GASTROINTESTINAL: No dysphagia. ENDOCRINE: No diabetes. PSYCHIATRIC: Denies any depression. MUSCULOSKELETAL: Bunions and hammertoe deformities. INTEGUMENTARY: Onychomycosis, onychogryphosis. His nails are each approximately 3 inches in length and approximately 2 cm in thickness. PAST MEDICAL HISTORY: No past medical history. ALLERGIES: No known drug allergies. SOCIAL HISTORY: The patient does not smoke, drink, or use any drugs. PHYSICAL EXAMINATION: VITAL SIGNS: He has a temperature of 99.1, his blood pressure of 131/85, pulse of 89. White count 7.3, hemoglobin 12.5, hematocrit 36.3, platelets 164, neutrophils 62.3. BUN and creatinine level 13 and 0.8, glucose 89, albumin 3.0. COVID-19 negative. Influenza negative, A and B. EXTREMITIES: On examination today, strongly palpable pedal pulses. Crystal horn type nails. The nails are approximately 3 inches in length, approximately 2 cm in thickness. No ulcers. No abscess. No cellulitis. ASSESSMENT: Onychomycosis, onychogryphosis, crystal horns nails, generalized weakness, fatigue, dehydration, benign prostatic hypertrophy. PLAN: I debrided the patient's toenails today extensively reducing the length and girth to pink healthy tissue and removed subungual debris x 10 with a nail clipper and dermal curette without incidence. I will follow the patient up as an outpatient once he is discharged. From my standpoint, the patient can be discharged. Follow up as an outpatient. TID: [id number] RECEIPT: [id number]
[2025-04-21 12:00] VITALS: BP 120/68; PULSE 78; RESP 16; TEMP 98.4
[2025-04-21] MEDS: PoTASSium chloRIDE 20MEQ ER 20 MEQ ERTAB PO PRN (12:24)
--- NOTE | 2025-04-21 15:34 | DS ---
[facility] DISCHARGE SUMMARY Date Patient Seen: Apr 21, 2025 Time of Visit: 15:34 Supervising Physician: Dr. Perez Primary Care Physician: Dr. Musa Luna Outpatient Specialists: [ ] Inpatient Consults: Dr. Leiva (Podiatry) HOSPITAL COURSE: HPI (per admitting provider) Patient is a 79-year-old male with limited past medical history presenting to the emergency department reporting generalized weakness. Patient states started several days ago and has progressively worsened. Viral panel is pending, patient's labs are grossly normal, chest x-ray is clear, EKG revealed no significant changes, he denied any chest pain or shortness of breath, no dizziness headache blurred or double vision. No abdominal complaints. Patient was treated with fluids, he was given lunch patient be admitted for observation. The patient was treated for the following problems: Patient was admitted for generalized weakness, expressed concerns about the patient urinating frequently up to 4-5 times a night. Patient's lab work was unremarkable on this admission and chest x-ray showed no acute findings. Podiatry was consulted at the request of the family given the patient's extensive onychomycosis. He was cleared by Podiatry to continue with outpatient follow up. Upon evaluation on this admission patient is positive for BPH and was recently started on tamsulosin, UA was negative, patient denied any acute distress, he feels he is at baseline, tolerating his diet. All concerns were addressed on this admission and the patient was discharged without any new medications with recommendations to follow up with PCP this week. ACTIVE PROBLEM LIST FOR THE HOSPITALIZATION: Generalized weakness Fatigue Dehydration BPH CHRONIC PROBLEMS: continue previous management per PCP unless otherwise indicated HUMAN RESOURCES SPECIALIST FINDINGS/RECOMMENDATIONS: [ ] Continue to follow with Podiatry, continue tamsulosin. Patient and family updated with expectations while on this medication PROCEDURES: as mentioned above DISCHARGE MEDICATIONS: No medications sent to pharmacy Pt hemodynamically stable and afebrile at time of discharge. PCP notified of patients admission, hospital course and discharge. PHYSICAL EXAM: GENERAL: alert, weak, awake oriented x 3 HEENT: EOMI, Sclera non icteric, moist mucosa NECK: Supple, no JVD, trachea midline LUNGS: Clear breath sounds bilaterally. No wheezes HEART: Regular rate and rhythm. Normal S1 and S2, without murmurs ABD: Abdomen soft, nontender. Bowel sounds present EXT: No clubbing cyanosis or edema NEURO: Alert and oriented to person, follows commands FOLLOW-UP: Follow-up with PCP in 2-3 days Follow up with Podiatry in two weeks RECOMMENDATIONS: See Discharge Instructions This case was seen and discussed with my supervising physician. More than 30 minutes spent on discharge process, including evaluation of the patient, discussion with nursing staff, medication reconciliation and follow-up appointments MAYA COOPER PAC Apr 21, 2025 15:34
[2025-04-21 16:00] VITALS: BP 140/77; PULSE 77; RESP 16; TEMP 97.9
--- NOTE | 2025-04-21 16:08 | NUR ---
INITIAL/DCP HOME Met w pt and spouse this afternoon to discuss dcp. EC is spouse Nury Barajas [phone]. PCP is Dr Musa Luna. [facility]. Prior to admission pt was living at home w his . He is independent w ambulation and ADLs. Pt does not own any DME or receive services He is able to drive where needed. Discharge goal is to return home.
--- NOTE | 2025-04-21 16:16 | NUR ---
Patient discharged. Patient was educated on the importance of following up with pcp and podiatry upon discharge. Patient verbalized understanding. Iv was removed without complications. Patient verbalized he would call nurse when ready to be transported to family members vehicle.
--- NOTE | 2025-04-21 17:15 | NUR ---
Patient discharged. Patient was transported to [facility] via wheelchair by [facility]. Patient presented no signs or symptoms of distress.
== END 2025-04-21 17:15 | disposition home or self-care (01) ==
LOC: EDH 08:12 → EDHIP 11:14 → 4AH 13:00
PROVIDERS: ADMIT Internal Medicine Pulmonary Disease; ATTEND Internal Medicine Pulmonary Disease
DX: L60.2 Onychogryphosis (principal); R53.1 Weakness; N40.0 Benign prostatic hyperplasia without lower urinary tract symptoms; R62.7 Adult failure to thrive; E86.0 Dehydration; B35.1 Tinea unguium; R53.83 Other fatigue; Z79.899 Other long term (current) drug therapy; Z98.890 Other specified postprocedural states; Z20.822 Contact with and (suspected) exposure to COVID-19
CPT/HCPCS: 96360; 99285; 82550; 80053 ×2; 83690; 85025 ×2; 87804 ×2; 87426; 81003; 36415 ×2; 71045; 93005; G0378 ×30; J7030